=== PATIENT | female | born 1975 | race American Indian/Alaskan Native ===

== ENCOUNTER 2020-01-18 20:53 | Emergency (ER) | payer MEDICAID, OTHER ==
--- NOTE | 2020-01-18 21:38 | EDM.PDOCBH ---
ED HPI GENERAL MEDICAL PROBLEM - General Chief Complaint: Behavioral/Psych Stated Complaint: PANIC ATTACK Time Seen by Provider: 01/18/20 20:59 Source of Information: Reports: Patient History Limitations: Reports: No Limitations - History of Present Illness INITIAL COMMENTS - FREE TEXT/NARRATIVE: Patient is a 44-year-old female who presents to the emergency department after having a panic attack. Patient states she has a long history of anxiety for which she normally takes Klonopin 1 mg twice daily. She verbalizes that she recently had a suicide attempt approximately 2 weeks ago. States she attempted to overdose on Effexor with vodka because her ex had taken her daughter away during the COVID epidemic. States she is spent a week in the psychiatric facility in [place]. She was on her way to [place] from [place] to help her sister moved back to [place] when at about [address] [facility] she started experiencing palpitations, anxiety, sweating, and a sense of impending doom. She was able to contact her psychiatrist, Dr. Romero who she states talk to her on the phone for about 1/2-hour. They recommended that she come to the nearest emergency department. In the meantime her sister had a 4 pack of small bottles of wine which would be the equivalent of 4 glasses of wine in the back of her car. The patient drink those and states that she was quickly feeling better so they did not stop at the next ER. She presents to the ER now with fear that she may have another panic attack. She is feeling much better at this time. She denies any suicidal thoughts or suicidal intent. The plan is for her to head back to [facility] next Friday at which time she will follow-up with her psychiatrist. She denies any chronic alcohol use. States is a first time she does drink alcohol since she went into the psychiatric facility. She denies any recreational drug use. - Related Data Allergies Allergy/AdvReac Type Severity Reaction Status Date / Time No Known Allergies Allergy Verified 01/19/20 03:49 Home Meds: Home Meds Doxepin [SINEquan] 75 mg PO DAILY 01/18/20 [History] Propranolol HCl [Propranolol] 10 mg PO TID 01/18/20 [History] clonazePAM [Clonazepam] 1 mg PO BID 7 Days #14 tablet 01/18/20 [Rx] hydrOXYzine HCL [hydrOXYzine] 25 mg PO TID 01/18/20 [History] Past Medical History HEENT History: Reports: None Cardiovascular History: Reports: None Respiratory History: Reports: None Gastrointestinal History: Reports: None Genitourinary History: Reports: None 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: Musculoskeletal History: Reports: Arthritis Neurological History: Reports: None Psychiatric History: Reports: Anxiety, Depression, Panic Attack Endocrine/Metabolic History: Reports: None Hematologic History: Reports: None Immunologic History: Reports: None Oncologic (Cancer) History: Reports: None Dermatologic History: Reports: None - Infectious Disease History Infectious Disease History: Reports: None - Past Surgical History Head Surgeries/Procedures: Reports: None Respiratory Surgical History: Reports: None Social & Family History - Tobacco Use Smoking Status *Q: Current Every Day Smoker Years of Tobacco use: 3 Packs/Tins Daily: 0.2 - Caffeine Use Caffeine Use: Reports: Coffee ED ROS GENERAL - Review of Systems Review Of Systems: See Below Constitutional: Reports: No Symptoms HEENT: Reports: No Symptoms Respiratory: Reports: No Symptoms Cardiovascular: Reports: No Symptoms Endocrine: Reports: No Symptoms GI/Abdominal: Reports: No Symptoms : Reports: No Symptoms Musculoskeletal: Reports: No Symptoms Skin: Reports: No Symptoms Neurological: Reports: No Symptoms Psychiatric: Reports: Anxiety. Denies: Hallucinations, Homicidal Ideation, Suicidal Ideation Hematologic/Lymphatic: Reports: No Symptoms Immunologic: Reports: No Symptoms ED EXAM, BEHAVIORAL HEALTH - Physical Exam Exam: See Below Exam Limited By: No Limitations General Appearance: Alert, Anxious Respiratory/Chest: No Respiratory Distress, Lungs Clear, Normal Breath Sounds, No Accessory Muscle Use, Chest Non-Tender Cardiovascular: Normal Peripheral Pulses, Regular Rate, Rhythm, No Edema, No Gallop, No JVD, No Murmur, No Rub Neurological: Alert, Normal Mood/Affect, CN II-XII Intact, Normal Cognition, Normal Gait, Normal Reflexes, No Motor/Sensory Deficits, Oriented x 3 Psychiatric: Alert, Normal Cognition, Oriented, Tearful (Intermittently). No: Suicidal Plan, Suicidal Thoughts COURSE, BEHAVIORAL HEALTH COMP - Course Vital Signs: Last Vital Signs Temp 97.9 F 01/18/20 22:20 Pulse 79 01/18/20 21:19 Resp 18 01/18/20 22:20 BP 125/80 01/18/20 22:20 Pulse Ox 96 01/18/20 22:20 Discharge vs Psych Eval/Treatment:: 01/18/20 21:39 Patient is a 44-year-old female who presents to the emergency department after having a panic attack while in route from [facility]. States that she is feeling much better after drinking some wine in route. 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 Last presc ription was filled on December 19, however this was only for a 7-day supply. She has been consuming alcohol this evening, therefore will not give her any benzodiazepines in the emergency department tonight. Discussed that I will give her a one-week supply of clonazepam 1 mg twice daily. This will be sent electronically to [facility] which is not open until tomorrow morning. Recommended that she contact her psychiatrist tomorrow to let him know that she will need a follow-up upon return to [place] on Friday. I did emphasize that she should not drink alcohol while taking this medication. She is in agreement with this and states that she does not habitually drink alcohol and that she only drink this evening to try to ease her panic attack. Discharge instructions as documented. Departure - Departure Time of Disposition: 21:41 Disposition: Home, Self-Care 01 Condition: Good Clinical Impression: Anxiety - Discharge Information *PRESCRIPTION DRUG MONITORING PROGRAM REVIEWED*: Yes *COPY OF PRESCRIPTION DRUG MONITORING REPORT IN PATIENT CHRISTIAN: Yes Prescriptions: clonazePAM [Clonazepam] 1 mg PO BID 7 Days #14 tablet Instructions: Living With Anxiety Referrals: PCP,None [Primary Care Provider] - Forms: ED Department Discharge Additional Instructions: You were seen in the emergency department today after having a panic attack while in route from [place] to [place]. By the time you arrived to the ER, your anxiety had improved. Since you had consumed alcohol prior to coming the ER and were feeling better, no medications were given in the emergency department. A 7-day prescription for clonazepam has been sent to [facility]. Take this medication only as prescribed. Do not take this medication if you have consumed alcohol and do not take more than the prescribed dose. Recommend that you follow-up with your psychiatrist upon return to [place] this upcoming Friday. If you should experience any worsening symptoms of anxiety or any thoughts of self-harm, please do not hesitate to return to the emergency department. Sepsis Event Note (ED) - Evaluation Sepsis Screening Result: No Definite Risk
== END 2020-01-18 22:25 | disposition home or self-care (01) ==
LOC: JD.ED 20:53
DX: F41.9 Anxiety disorder, unspecified (principal); F17.210 Nicotine dependence, cigarettes, uncomplicated; Z79.899 Other long term (current) drug therapy
CPT/HCPCS: 99283

== ENCOUNTER 2020-01-19 03:36 | Emergency (ER) | payer MEDICAID, OTHER ==
[2020-01-19] MEDS ORDERED: ClonazePAM 0.5 MG Tab PO ONE (03:48)
--- NOTE | 2020-01-19 04:27 | EDM.PDOC ---
ED HPI GENERAL MEDICAL PROBLEM - General Chief Complaint: Behavioral/Psych Stated Complaint: [facility] Time Seen by Provider: 01/19/20 03:41 Source of Information: Reports: Patient, EMS, RN Notes Reviewed - History of Present Illness INITIAL COMMENTS - FREE TEXT/NARRATIVE: Onset of panic attack a short time ago. Hyperventilating upon EMS arrival and upon ED arrival. Paresthesias bilat hands. Chest palpitations. Has hx anxiety, panic attacks. Was seen here in the ED last evening with concerns about panic attack but had drank a considerable amt of wine, so was not anxious at that time. Prescription provided for clonazepam which she has taken in the past. Pt is from out of town. Plans to go home early next week. Left Shoulder Pain Score (Numeric/FACES): 7 - Related Data Allergies Allergy/AdvReac Type Severity Reaction Status Date / Time No Known Allergies Allergy Verified 01/19/20 03:49 Home Meds: Home Meds Doxepin [SINEquan] 75 mg PO DAILY 01/18/20 [History] Propranolol HCl [Propranolol] 10 mg PO TID 01/18/20 [History] clonazePAM [Clonazepam] 1 mg PO BID 7 Days #14 tablet 01/18/20 [Rx] hydrOXYzine HCL [hydrOXYzine] 25 mg PO TID 01/18/20 [History] Past Medical History HEENT History: Reports: None Cardiovascular History: Reports: None Respiratory History: Reports: None Gastrointestinal History: Reports: None Genitourinary History: Reports: None 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: Musculoskeletal History: Reports: Arthritis Neurological History: Reports: None Psychiatric History: Reports: Anxiety, Depression, Panic Attack Endocrine/Metabolic History: Reports: None Hematologic History: Reports: None Immunologic History: Reports: None Oncologic (Cancer) History: Reports: None Dermatologic History: Reports: None - Infectious Disease History Infectious Disease History: Reports: None - Past Surgical History Head Surgeries/Procedures: Reports: None Respiratory Surgical History: Reports: None Social & Family History - Tobacco Use Smoking Status *Q: Current Every Day Smoker Years of Tobacco use: 9 Packs/Tins Daily: 0.2 - Caffeine Use Caffeine Use: Reports: None - Recreational Drug Use Recreational Drug Use: No ED ROS GENERAL - Review of Systems Review Of Systems: See Below Constitutional: Denies: Fever, Chills HEENT: Reports: No Symptoms Respiratory: Reports: Shortness of Breath. Denies: Wheezing, Pleuritic Chest Pain Cardiovascular: Reports: Palpitations. Denies: Chest Pain GI/Abdominal: Denies: Abdominal Pain, Vomiting Musculoskeletal: Denies: Joint Pain Skin: Denies: Rash Neurological: Reports: Dizziness, Numbness, Tingling ED EXAM, DIZZINESS - Physical Exam Exam: See Below General Appearance: Alert, Anxious Head Exam: Atraumatic Neck: Supple Respiratory/Chest: No Respiratory Distress, Lungs Clear, Normal Breath Sounds Cardiovascular: Regular Rate, Rhythm Neurological: Alert, No Motor/Sensory Deficits, Oriented x 3 Extremities: Normal Inspection, Normal Range of Motion Skin Exam: Warm, Dry, Normal Color, No Rash Course - Vital Signs Last Recorded V/S: Last Vital Signs Temp 99.0 F 01/19/20 03:41 Pulse 82 01/19/20 04:13 Resp 20 01/19/20 03:41 BP 129/69 01/19/20 04:13 Pulse Ox 96 01/19/20 04:13 - Orders/Labs/Meds Meds: Medications Discontinued Medications Generic Name Dose Route Start Last Admin Trade Name Giancarlo PRN Reason Stop Dose Admin Clonazepam 1 mg 01/19/20 03:48 01/19/20 03:55 Klonopin PO 01/19/20 03:49 1 mg ONETIME ONE Administration - Re-Assessments/Exams Free Text/Narrative Re-Assessment/Exam: 01/19/20 04:30 Feeling much better after clonazepam 1 mg PO. Numbness is gone. Feels ready for discharge. Departure - Departure Time of Disposition: 04:31 Disposition: Home, Self-Care 01 Condition: Fair Clinical Impression: Panic attack - Discharge Information Referrals: PCP,Not In Area [Primary Care Provider] - Forms: ED Department Discharge Additional Instructions: You have been given clonazepam 1 mg PO while here in the ED. Do not drive for at least 8 hrs. due to sedative effect. Fill the prescription previously provided and take the clonazepam as needed. Follow up with your regular medical provider as needed. Sepsis Event Note (ED) - Evaluation Sepsis Screening Result: No Definite Risk - Focused Exam Vital Signs: Vital Signs Temp Pulse Resp BP Pulse Ox 01/19/20 04:13 82 129/69 96 01/19/20 03:41 99.0 F 84 20 135/65 99
== END 2020-01-19 04:47 | disposition home or self-care (01) ==
LOC: JD.ED 03:36
DX: F41.0 Panic disorder [episodic paroxysmal anxiety] (principal); R20.2 Paresthesia of skin; F32.9 Major depressive disorder, single episode, unspecified; F17.210 Nicotine dependence, cigarettes, uncomplicated; Z79.899 Other long term (current) drug therapy
CPT/HCPCS: 99284; A9270

== ENCOUNTER 2021-09-05 02:24 | Emergency (ER) | payer BC, MEDICAID, OTHER ==
[2021-09-05] MEDS ORDERED: Midazolam 1 MG/ML 2 ML SDV IM ONE (02:37)
[2021-09-05] MEDS ORDERED: ClonazePAM 0.5 MG Tab PO ONE (02:49)
== END 2021-09-05 05:12 | disposition home or self-care (01) ==
LOC: JD.ED 02:24
DX: F41.0 Panic disorder [episodic paroxysmal anxiety] (principal)
CPT/HCPCS: 82947; 96372; 99284; A9270; J2250